=== PATIENT | male | born 1965 | race Hispanic/Latino ===

== ENCOUNTER → 2019-01-29 | Outpatient (CLI) | payer OTHER ==
[~2019-01-29] MED LIST: AMLO5TAB9 PO; ASPI-1005 PO; LISI-613 PO; METO-408 PO; MV,M1TAB2 PO; OMEP-50 PO
== END | disposition home or self-care (01) ==
LOC: SHCH 15:31
PROVIDERS: ATTEND Internal Medicine Cardiovascular Disease
DX: I07.1 Rheumatic tricuspid insufficiency (principal)
CPT/HCPCS: 93306